=== PATIENT | female | born 1995 | race Hispanic/Latino ===

== ENCOUNTER 2019-12-20 14:37 | Inpatient (IN) | payer MEDICAID ==
[~2019-12-20] VITALS: Ht 170.2 cm; Wt 66.7 kg
[2019-12-20 15:23] LABS: APPEARANCE,URINE Clear (CLEAR); BILIRUBIN,URINE Negative (NEGATIVE); COLOR,URINE Yellow (YELLOW); GLUCOSE, URINE (UA) Negative (NEGATIVE); KETONES,URINE 40 mg/dL (NEGATIVE); LEUKOCYTE ESTERASE ,URINE Moderate (NEGATIVE); NITRATE,URINE Negative (NEGATIVE); OCCULT BLOOD,URINE Negative (NEGATIVE); PROTEIN,URINE Negative (NEGATIVE)
[2019-12-20 15:39] LABS: BACTERIA,URINE Rare /HPF (None Seen); RBC,URINE 0-1 /HPF (0-1); SQUAMOUS EPITHELIAL CELL,UR Rare /HPF (0-2)
[2019-12-20] MEDS ORDERED: LACTATED RINGERS 1000ML 1,000 ML IV PRN (15:41)
[2019-12-20 15:44] VITALS: BP 112/62
[2019-12-20] MEDS ORDERED: LACTATED RINGERS 500 ML 500 ML IV PRN (15:45)
[2019-12-20] MEDS ORDERED: MEPERIDINE-PF 50 MG/ML SYG IVP PRN (15:45)
[2019-12-20] MEDS: OXYTOCIN-LR 20 UNITS/1000 ML 1,000 ML IV SCH (15:45)
[2019-12-20] MEDS ORDERED: EPHEDRINE SULFATE 50 MG/ML AMPULE IVP PRN (15:45)
[2019-12-20] MEDS ORDERED: NALOXONE HCL 0.4 MG/1 ML ML IV PRN (15:45)
[2019-12-20] MEDS ORDERED: ROPIVACAINE 0.2% 100ML VIAL 100 ML EP SCH (15:45)
[2019-12-20] MEDS ORDERED: PROMETHAZINE HCL 25 MG/ML 1ML AMPULE IM PRN (15:45)
[2019-12-20 16:09] LABS: HEMATOCRIT 34.7 % (36-48); MEAN CORPUSCULAR HEMOGLOBIN 29.3 pg (27.0-33.0); MEAN CORPUSCULAR HGB CONC 32.9 g/dL (32.0-36.0); MEAN CORPUSCULAR VOLUME 89.2 fL (79-99); PLATELET COUNT (AUTO) 246 K/uL (130-400); RED BLOOD CELL COUNT(AUTO) 3.89 MIL/uL (4.00-5.50); RED CELL DISTRIBUTION WIDTH 12.1 % (11.0-15.5); WHITE BLOOD COUNT (AUTO) 9.2 K/uL (4.8-10.8)
[2019-12-20] MEDS ORDERED: OXYTOCIN-LR 20 UNITS/1000 ML 1,000 ML IV ONE (16:09)
[2019-12-20] MEDS ORDERED: OXYTOCIN-LR 20 UNITS/1000 ML 1,000 ML IV SCH (16:15)
[2019-12-20] MEDS ORDERED: MEPERIDINE-PF 100 MG/ML SYG ONE (18:06)
[2019-12-20] MEDS ORDERED: LIDOCAINE HCL 1% 20 ML VIAL ONE (19:11)
[2019-12-20 20:35] VITALS: BP 102/59
[2019-12-20] MEDS ORDERED: ACETAMINOPHEN 325 MG TAB PO PRN (20:45)
[2019-12-20] MEDS ORDERED: IBUPROFEN 600 MG TABLET PO PRN (20:45)
[2019-12-20] MEDS ORDERED: BENZOCAINE/LANOLIN/ALOE VERA 60 ML AEROSOL TP PRN (20:45)
[2019-12-20] MEDS ORDERED: LANOLIN 30GM OINTMENT TP PRN (20:45)
[2019-12-20] MEDS ORDERED: ACETAMINOPHEN-CODEINE 300/30MG TAB PO PRN (20:45)
[2019-12-20] MEDS ORDERED: WITCH HAZEL 1 PAD TP PRN (20:45)
[2019-12-20] MEDS: DOCUSATE SODIUM 100 MG CAP PO SCH (22:05)
[2019-12-20 23:25] VITALS: BP 93/49
[2019-12-21 03:55] VITALS: BP 103/63
[2019-12-21 06:24] LABS: HEMATOCRIT 37.4 % (36-48); MEAN CORPUSCULAR HEMOGLOBIN 29.3 pg (27.0-33.0); MEAN CORPUSCULAR HGB CONC 32.4 g/dL (32.0-36.0); MEAN CORPUSCULAR VOLUME 90.6 fL (79-99); PLATELET COUNT (AUTO) 229 K/uL (130-400); RED BLOOD CELL COUNT(AUTO) 4.13 MIL/uL (4.00-5.50); RED CELL DISTRIBUTION WIDTH 12.2 % (11.0-15.5); WHITE BLOOD COUNT (AUTO) 12.4 K/uL (4.8-10.8)
[2019-12-21 07:19] VITALS: BP 108/68
[2019-12-21] MEDS: DOCUSATE SODIUM 100 MG CAP PO SCH (08:56)
[2019-12-21 11:35] VITALS: BP 98/67
[2019-12-21] MEDS: OXYTOCIN-LR 20 UNITS/1000 ML 1,000 ML IV SCH (15:22)
[2019-12-21 16:16] VITALS: BP 100/54
[2019-12-21 19:30] VITALS: BP 113/73
--- NOTE | 2019-12-21 19:30 | NUR ---
DISCHARGE INSTRUCTIONS GIVEN AND PATIENT VERBALIZED UNDERSTANDING INSTRUCTIONS GIVEN. PATIENT DENIES PAIN.
--- NOTE | 2019-12-21 19:55 | NUR ---
PATIENT WAS TAKEN VIA W/C CARRYING BABY IN ARMS AND WAS DISCHARGED TO SPOUSE IN STABLE CONDITION. PATIENT STABLE.
[2019-12-24 07:13] LABS: HEPATITIS Bs ANTIGEN SCREEN P Negative (Negative)
== END 2019-12-21 19:55 | disposition home or self-care (01) | DRG 560 ==
LOC: LDH 14:37 → OBSVTOIN 14:37 → WSH 20:35
PROVIDERS: ADMIT Obstetrics & Gynecology; ATTEND Obstetrics & Gynecology
PROC: 10E0XZZ Delivery of Products of Conception, External Approach (ICD-10-PCS; principal; 2019-12-20)
PROC: 0HQ9XZZ Repair Perineum Skin, External Approach (ICD-10-PCS; 2019-12-20)
DX: O69.81X0 Labor and delivery complicated by cord around neck, without compression, not applicable or unspecified (principal); Z37.0 Single live birth; O70.0 First degree perineal laceration during delivery; Z3A.36 36 weeks gestation of pregnancy
CPT/HCPCS: 36415; 81001; 85027; 86592; 86850; 86900; 86901; 87340; G0378; J2175; J2550; J2590